=== PATIENT | female | born 1970 | race Caucasian/White ===

== ENCOUNTER 2022-10-09 20:23 | Emergency (ER) | payer BC, OTHER ==
[~2022-10-09] VITALS: Ht 170.2 cm; Wt 74.8 kg
[2022-10-09] MEDS ORDERED: LOSARTAN POTASS50 MG (20:34)
[2022-10-09] MEDS ORDERED: TRANDATE300 MG (20:34)
[2022-10-09] MEDS ORDERED: AMLODIPINE-OLM1 EAC3 (20:34)
[2022-10-09] MEDS ORDERED: TUSNEL LIQUID178 ML PO (23:34)
[2022-10-09] MEDS ORDERED: ZITHROMAX500 MG PO (23:34)
[2022-10-10] MEDS ORDERED: BUDESONIDE0.5 MG/2 M IH (03:39)
== END 2022-10-10 04:42 | disposition home or self-care (01) ==
LOC: ER 20:23
DX: R06.02 Shortness of breath (principal); I12.9 Hypertensive chronic kidney disease with stage 1 through stage 4 chronic kidney disease, or unspecified chronic kidney disease; N18.9 Chronic kidney disease, unspecified; F17.210 Nicotine dependence, cigarettes, uncomplicated; Z20.822 Contact with and (suspected) exposure to COVID-19